=== PATIENT | female | born 1970 | race Caucasian/White ===

== ENCOUNTER 2016-10-04 17:47 | Observation (INO) | payer SELFPAY ==
[~2016-10-04] VITALS: Ht 160 cm; Wt 161.5 kg
[~2016-10-04 17:47] MED LIST: ABILIFY5 MG PO; COUMADIN1 MG PO; COUMADIN4 MG PO; COUMADIN5 MG PO; LASIX20 MG PO; LEXAPRO20 MG PO; MICROZIDE12.5 MG PO; MOBIC15 MG PO; NORCO 325-5 MG1 TAB PO; RISPERDAL1 MG PO; TRAZODONE HCL100 MG PO
[2016-10-04] MEDS ORDERED: EFFEXOR XR75 MG PO (18:27)
[2016-10-04] MEDS ORDERED: EFFEXOR XR37.5 MG PO (18:27)
[2016-10-04] MEDS ORDERED: IRON325 M1 PO (18:28)
[2016-10-04] MEDS ORDERED: GLUCOPHAGE500 MG PO (18:31)
[2016-10-04] MEDS ORDERED: NYSTOP15 GM TOP (18:32)
[2016-10-04] MEDS ORDERED: PROVERA5 MG PO (18:33)
[2016-10-04] MEDS ORDERED: KLOR-CON M1010 MEQ PO (18:33)
[2016-10-04] MEDS ORDERED: COUMADIN6 MG PO (18:35)
[2016-10-04] MEDS ORDERED: WARFARIN SODIUM5 MG PO (19:38)
[2016-10-05] MEDS ORDERED: PRILOSEC20 MG PO (12:12)
[2016-10-05] MEDS ORDERED: FLAGYL500 MG PO (12:12)
== END 2016-10-05 13:50 | disposition short-term general hospital (02) ==
LOC: RT 17:47 → ER 17:47 → IP 20:10 → OBS 20:10 → IP 10-05 13:50
PROVIDERS: ADMIT Family Medicine
DX: R10.13 Epigastric pain (principal); R10.11 Right upper quadrant pain; R79.89 Other specified abnormal findings of blood chemistry; K76.0 Fatty (change of) liver, not elsewhere classified; E11.9 Type 2 diabetes mellitus without complications; I10 Essential (primary) hypertension; G47.00 Insomnia, unspecified; E66.01 Morbid (severe) obesity due to excess calories; N76.0 Acute vaginitis; Z86.718 Personal history of other venous thrombosis and embolism; Z79.01 Long term (current) use of anticoagulants; Z79.899 Other long term (current) drug therapy
CPT/HCPCS: A9150; G0378; J8499

== ENCOUNTER 2016-10-18 23:13 | Emergency (ER) | payer SELFPAY ==
[~2016-10-18] VITALS: Ht 162.6 cm; Wt 161.0 kg
[~2016-10-18 23:13] MED LIST changes: +COUMADIN6 MG PO; +EFFEXOR XR37.5 MG PO; +EFFEXOR XR75 MG PO; +FLAGYL500 MG PO; +GLUCOPHAGE500 MG PO; +IRON325 M1 PO; +KLOR-CON M1010 MEQ PO; +NYSTOP15 GM TOP; +PRILOSEC20 MG PO; +PROVERA5 MG PO; +WARFARIN SODIUM5 MG PO
== END 2016-10-19 01:28 | disposition short-term general hospital (02) ==
LOC: ER 23:13
DX: K21.9 Gastro-esophageal reflux disease without esophagitis (principal); Z91.018 Allergy to other foods; Z79.01 Long term (current) use of anticoagulants

== ENCOUNTER → 2016-10-27 | Outpatient (CLI) | payer SELFPAY | END | disposition short-term general hospital (02) | LOC: CLVASC 10:02 | DX: I87.009 Postthrombotic syndrome without complications of unspecified extremity (principal) ==

== ENCOUNTER → 2016-11-14 | Outpatient (CLI) | payer SELFPAY | END | disposition short-term general hospital (02) | LOC: CLONCO 09:06 | DX: D68.59 Other primary thrombophilia (principal); D50.9 Iron deficiency anemia, unspecified; E66.9 Obesity, unspecified; E11.9 Type 2 diabetes mellitus without complications; I82.409 Acute embolism and thrombosis of unspecified deep veins of unspecified lower extremity; Z79.01 Long term (current) use of anticoagulants; Z79.899 Other long term (current) drug therapy ==